=== PATIENT | female | born 1960 | race Caucasian/White ===

== ENCOUNTER 2020-12-25 10:19 | Outpatient (CLI) | payer OTHER ==
[2020-12-25 11:51] LABS: Anion Gap 12 mmol/L (10-20); BUN (Urea Nitrogen) 14 mg/dL (9.8-20.1); Calc. Creatinine Clearance 0 mL/min (70-130); Calcium 9.7 mg/dL (7.8-10.44); Carbon Dioxide 28 mmol/L (23-31); Chloride 105 mmol/L (98-107); Glucose 90 mg/dL (80-115); INR-International Normal Ratio 0.9; PTT 29.4 sec (22.0-33.0); Potassium 4.3 mmol/L (3.5-5.1); Prothrombin Time 10.5 sec (9.5-12.1); Sodium 141 mmol/L (136-145)
[2020-12-25 11:59] LABS: Hemoglobin 15.2 g/dL (12.0-15.5); Mean Corpuscular HGB CONC 33.6 g/dL (32.0-36.0); Mean Corpuscular Hemoglobin 32.8 pg (27.0-33.0); Mean Corpuscular Volume 97.6 fl (81.6-98.3); Mean Platelet Volume 10.7 fl (7.4-10.4); Platelet Count 229 10x3/uL (150-450); RBC Distribution Width 12.3 % (11.5-14.5); Red Blood Cell (RBC) Count 4.64 10x6/uL (3.90-5.03); White Blood Cell (WBC) Count 7.7 10x3/uL (3.5-10.5)
== END 2020-12-25 10:20 | disposition home or self-care (01) ==
LOC: LABBT 10:19
PROVIDERS: ATTEND Internal Medicine Cardiovascular Disease
DX: Z01.818 Encounter for other preprocedural examination (principal); Z51.81 Encounter for therapeutic drug level monitoring; I48.91 Unspecified atrial fibrillation; I50.9 Heart failure, unspecified; Z79.01 Long term (current) use of anticoagulants
CPT/HCPCS: 80048; 85027; 85610; 85730; 93005; 93010

== ENCOUNTER 2020-12-30 05:52 | Observation (INO) | payer OTHER ==
[2020-12-27 12:24] VITALS: BMI 20.9
[2020-12-30] MEDS ORDERED: Heparin 25,000 units/D5W 500 ML ONE (06:44)
[2020-12-30] MEDS ORDERED: Heparin 10,000 UNITS/ 10 ML VIAL ONE (06:44)
[2020-12-30] MEDS ORDERED: Lidocaine 1% (PF) 30 ML VIAL ONE (06:45)
[2020-12-30] MEDS ORDERED: Isoproterenol 0.2 MG/1 ML AMP ONE ×2 (06:45→09:45)
[2020-12-30] MEDS ORDERED: Fentanyl 100 MCG/2 ML VIAL ONE ×2 (07:07→11:28)
[2020-12-30] MEDS ORDERED: Albuterol Sulfate HFA (OR ONLY) ONE (07:31)
[2020-12-30] MEDS ORDERED: Lidocaine 1% PF 5 ML VIAL ONE (07:35)
[2020-12-30] MEDS ORDERED: Rocuronium Bromide 10 MG/ML (10ML VIAL) ONE (07:35)
[2020-12-30] MEDS ORDERED: Ondansetron PF 4 MG/2 ML Vial ONE (07:35)
[2020-12-30] MEDS ORDERED: Dexamethasone 20 MG/5 ML VIAL ONE (07:35)
[2020-12-30] MEDS ORDERED: Midazolam HCl 2 mg/2 ml Vial ONE (07:35)
[2020-12-30] MEDS ORDERED: PHENYLEPHRINE-NS 100 MCG/ML 10 ML SYRINGE ONE (07:35)
[2020-12-30] MEDS ORDERED: PROPOFOL 200 MG/20 ML VIAL ONE (07:35)
[2020-12-30] MEDS ORDERED: ePHEDrine Sulfate 50 MG/10 ML VIAL ONE (07:35)
[2020-12-30] MEDS ORDERED: Protamine Sulfate 50 MG/5 ML VIAL ONE (10:48)
[2020-12-30] MEDS ORDERED: SUGAMMADEX SODIUM 200 MG/2 ML VIAL ONE (10:49)
[2020-12-30] MEDS ORDERED: Furosemide 40 MG TAB PO PRN (12:04)
[2020-12-30] MEDS ORDERED: Potassium Chloride 20 MEQ TAB PO PRN (12:04)
[2020-12-30] MEDS ORDERED: HYDROcodone/Acetaminophen 10/325 mg Tablet PO PRN (12:07)
[2020-12-30] MEDS ORDERED: Albuterol Sulfate 2.5 mg/3 ml Neb NEB PRN (12:08)
[2020-12-30] MEDS ORDERED: Cyclobenzaprine 10 MG TAB PO PRN (12:14)
[2020-12-30] MEDS ORDERED: Acetaminophen/Codeine 30-300mg Tablet PO PRN ×2 (12:15)
[2020-12-30] MEDS ORDERED: PROMETHAZINE-CODEINE SYRUP PO PRN (12:16)
[2020-12-30] MEDS: Sucralfate 1 GM TAB PO SCH (18:23)
[2020-12-30] MEDS: guaiFENesin/Codeine 200 mg/20 mg 10 ml Cup PO PRN (18:23)
[2020-12-30] MEDS: clonazePAM 1 MG TAB PO SCH (20:10)
[2020-12-30] MEDS: Apixaban 5 MG TAB PO SCH (20:10)
[2020-12-30] MEDS: Zolpidem Tartrate 5 MG TAB PO PRN ×2 (20:10→22:38)
[2020-12-30] MEDS: Ketorolac Tromethamine 30 MG/ML VIAL IVP PRN (22:24)
[2020-12-31] MEDS: Sucralfate 1 GM TAB PO SCH ×3 (00:01→13:19)
[2020-12-31] MEDS: Ketorolac Tromethamine 30 MG/ML VIAL IVP PRN (04:19)
[2020-12-31] MEDS ORDERED: Albuterol Sulfate 1.25 MG/3 ML NEB NEB PRN (08:58)
[2020-12-31] MEDS ORDERED: Estradiol 1 MG TAB PO SCH (09:00)
[2020-12-31] MEDS ORDERED: Potassium Chloride 20 MEQ TAB PO SCH (09:00)
[2020-12-31] MEDS ORDERED: Furosemide 40 MG/4 ML VIAL SLOW IVP SCH (09:00)
[2020-12-31] MEDS: clonazePAM 1 MG TAB PO SCH (09:26)
[2020-12-31] MEDS: Apixaban 5 MG TAB PO SCH (09:26)
[2020-12-31] MEDS: guaiFENesin/Codeine 200 mg/20 mg 10 ml Cup PO PRN ×2 (09:29)
[2020-12-31 11:59] VITALS: BP 119/83; TEMP 98.5
== END 2020-12-31 13:39 | disposition home or self-care (01) ==
LOC: CCL 05:52 → 2SW 06:40
PROVIDERS: ADMIT Internal Medicine Cardiovascular Disease; ATTEND Internal Medicine Cardiovascular Disease
PROC: 02583ZZ Destruction of Conduction Mechanism, Percutaneous Approach (ICD-10-PCS; principal; 2020-12-30)
PROC: 02K83ZZ Map Conduction Mechanism, Percutaneous Approach (ICD-10-PCS; 2020-12-30)
PROC: 4A023FZ Measurement of Cardiac Rhythm, Percutaneous Approach (ICD-10-PCS; 2020-12-30)
PROC: 4A0234Z Measurement of Cardiac Electrical Activity, Percutaneous Approach (ICD-10-PCS; 2020-12-30)
DX: I48.0 Paroxysmal atrial fibrillation (principal); I48.92 Unspecified atrial flutter; J44.9 Chronic obstructive pulmonary disease, unspecified; I10 Essential (primary) hypertension; G43.909 Migraine, unspecified, not intractable, without status migrainosus; G89.4 Chronic pain syndrome; F17.200 Nicotine dependence, unspecified, uncomplicated; K21.9 Gastro-esophageal reflux disease without esophagitis; M19.90 Unspecified osteoarthritis, unspecified site; Z79.01 Long term (current) use of anticoagulants; Z79.899 Other long term (current) drug therapy; Z88.5 Allergy status to narcotic agent; Z88.6 Allergy status to analgesic agent
CPT/HCPCS: 76942; 85347; 93005; 93010; 93613; 93622; 93623; 93655; 93656; 93662; 96374; 96375; 96376; C1732; C1759; G0378; J1100; J1644; J1885; J1940; J2001; J2250; J2405; J2704; J2720; J3010

== ENCOUNTER 2021-01-01 21:09 | Observation (INO) | payer OTHER ==
[2021-01-01 22:26] VITALS: BMI 21.0
[2021-01-01] MEDS ORDERED: Albuterol Sulfate 1.25 MG/3 ML NEB NEB PRN (23:22)
[2021-01-01] MEDS ORDERED: Potassium Chloride 20 MEQ TAB PO PRN (23:22)
[2021-01-01] MEDS ORDERED: Zolpidem Tartrate 5 MG TAB PO SCH (23:59)
[2021-01-01] MEDS ORDERED: clonazePAM 1 MG TAB PO SCH (23:59)
[2021-01-02] MEDS ORDERED: Acetaminophen 325 MG TAB PO PRN (01:07)
[2021-01-02] MEDS: Sucralfate 1 GM TAB PO SCH ×6 (01:09→23:39)
[2021-01-02] MEDS ORDERED: Cefepime 2 GM in Sodium Chloride 0.9% 100 ML IVPB SCH (02:00)
[2021-01-02 02:37] LABS: Anion Gap 13 mmol/L (10-20); BUN (Urea Nitrogen) 9 mg/dL (9.8-20.1); Calc. Creatinine Clearance 101 mL/min (70-130); Calcium 8.4 mg/dL (7.8-10.44); Carbon Dioxide 22 mmol/L (23-31); Chloride 108 mmol/L (98-107); Glucose 105 mg/dL (80-115); Potassium 3.5 mmol/L (3.5-5.1); Sodium 139 mmol/L (136-145)
[2021-01-02] MEDS: Guaifenesin DM 100-10/5 ML UDCUP PO PRN ×2 (02:37→21:22)
[2021-01-02] MEDS ORDERED: Vancomycin 1.5 GRAM/300 ML BAG 1.5 GM in Premix Bag 1 BAG IVPB SCH (03:00)
[2021-01-02] MEDS ORDERED: Vancomycin 1 GM in Premix Bag 1 BAG IVPB SCH ×2 (03:00→15:00)
[2021-01-02 03:14] LABS: Troponin I 0.983 ng/mL (< 0.028)
[2021-01-02 04:55] LABS: #Eosinphils 0.2 thou/uL (0.0-0.7); #Lymphocytes 2.1 thou/uL (1.20-3.40); #Monocytes 1.1 thou/uL (0.11-0.59); #Neutrophils 4.1 thou/uL (1.40-6.50); %Basophils 0.2 % (0.0-1.0); %Eosinophils 2.3 % (0.0-10.0); %Lymphocytes 28.8 % (21.0-51.0); %Monocytes 14.3 % (0.0-10.0); %Neutrophils 54.5 % (42.0-75.0); Hemoglobin 12.2 g/dL (12.0-16.0); Mean Corpuscular HGB CONC 35.1 g/dL (32.0-36.0); Mean Corpuscular Hemoglobin 35.1 pg (27.0-31.0); Mean Corpuscular Volume 99.7 fL (78.0-98.0); Mean Platelet Volume 8.3 fL (7.4-10.4); Platelet Count 151 thou/uL (130-400); RBC Distribution Width 11.5 % (11.5-14.5); Red Blood Cell (RBC) Count 3.48 mill/uL (4.20-5.40); White Blood Cell (WBC) Count 7.4 thou/uL (4.8-10.8)
[2021-01-02 05:34] LABS: Critical Call Chem Troponin I RESULT DECREASING
[2021-01-02] MEDS: methylPREDNISolone Sod Succ 40 MG VIAL IVP SCH ×4 (05:55→23:39)
[2021-01-02] MEDS: clonazePAM 1 MG TAB PO SCH ×2 (09:03→21:21)
[2021-01-02] MEDS: Benzonatate 100 MG CAP PO PRN ×3 (09:03→21:21)
[2021-01-02] MEDS: Estradiol 1 MG TAB PO SCH (09:03)
[2021-01-02] MEDS: Apixaban 5 MG TAB PO SCH ×2 (09:03→21:21)
[2021-01-02] MEDS: Cyclobenzaprine 10 MG TAB PO SCH ×2 (09:03→21:20)
[2021-01-02] MEDS ORDERED: Furosemide 40 MG TAB PO PRN (09:05)
[2021-01-02] MEDS ORDERED: PATIENT'S HOME MEDICATION PO PRN (09:07)
[2021-01-02] MEDS: Promethazine 25 MG TAB PO PRN (16:42)
[2021-01-02] MEDS ORDERED: Zolpidem Tartrate 5 MG TAB PO SCH (21:00)
[2021-01-02] MEDS: Doxycycline 100 MG CAP PO SCH (21:22)
[2021-01-03] MEDS ORDERED: HYDROcodone/Acetaminophen 7.5/325 mg Tablet PO PRN (01:41)
[2021-01-03] MEDS: Sucralfate 1 GM TAB PO SCH ×2 (05:34→10:59)
[2021-01-03] MEDS: methylPREDNISolone Sod Succ 40 MG VIAL IVP SCH ×2 (05:34→10:59)
[2021-01-03] MEDS: Promethazine 25 MG TAB PO PRN (08:18)
[2021-01-03] MEDS: Doxycycline 100 MG CAP PO SCH (08:18)
[2021-01-03] MEDS: Benzonatate 100 MG CAP PO PRN (08:18)
[2021-01-03] MEDS: clonazePAM 1 MG TAB PO SCH (08:18)
[2021-01-03] MEDS: Estradiol 1 MG TAB PO SCH (08:18)
[2021-01-03] MEDS: Apixaban 5 MG TAB PO SCH (08:19)
[2021-01-03] MEDS ORDERED: HYDROcodone/Acetaminophen 5/325 mg Tablet PO PRN (08:23)
[2021-01-03] MEDS: Cyclobenzaprine 10 MG TAB PO SCH (08:24)
[2021-01-03] MEDS: Guaifenesin DM 100-10/5 ML UDCUP PO PRN (08:26)
[2021-01-03 11:01] VITALS: BP 117/56; TEMP 98.7
== END 2021-01-03 12:08 | disposition home or self-care (01) ==
LOC: 2NO 22:05
PROVIDERS: ADMIT Internal Medicine; ATTEND Internal Medicine
DX: R06.02 Shortness of breath (principal); R05 Cough; R77.8 Other specified abnormalities of plasma proteins; J42 Unspecified chronic bronchitis; I48.91 Unspecified atrial fibrillation; G89.29 Other chronic pain; M54.9 Dorsalgia, unspecified; I73.9 Peripheral vascular disease, unspecified; Z79.899 Other long term (current) drug therapy; Z87.891 Personal history of nicotine dependence; Z88.5 Allergy status to narcotic agent; Z88.6 Allergy status to analgesic agent; Z20.822 Contact with and (suspected) exposure to COVID-19
CPT/HCPCS: 36415; 80048; 84484; 85025; 87040; 94640; 96374; 96375; 96376; G0378; J0692; J2920; J3370; J3490; J7620; Q0169

== ENCOUNTER 2021-12-31 10:41 | Outpatient (CLI) | payer OTHER | END 2021-12-31 10:42 | disposition home or self-care (01) | LOC: BICMAMMO 10:41 | PROVIDERS: ATTEND Internal Medicine Gastroenterology | DX: Z12.31 Encounter for screening mammogram for malignant neoplasm of breast (principal) | CPT/HCPCS: 77067 ==

== ENCOUNTER 2022-09-10 09:42 | Emergency (ER) | payer OTHER ==
[2022-09-10 11:33] LABS: INR-International Normal Ratio 0.9; PTT 32.4 sec (22.9-36.1); Prothrombin Time 12.2 sec (12.0-14.7)
[2022-09-10 11:34] LABS: D-Dimer Test 0.68 *mcg/mL (0.27-0.43)
[2022-09-10 11:35] LABS: #Eosinphils 0.1 thou/uL (0.0-0.7); #Lymphocytes 2.3 thou/uL (1.20-3.40); #Monocytes 0.7 thou/uL (0.11-0.59); #Neutrophils 4.6 thou/uL (1.40-6.50); %Basophils 0.4 % (0.0-1.0); %Eosinophils 0.9 % (0.0-10.0); %Lymphocytes 29.7 % (21.0-51.0); %Monocytes 9.6 % (0.0-10.0); %Neutrophils 59.3 % (42.0-75.0); Hemoglobin 14.9 g/dL (12.0-16.0); Mean Corpuscular Hemoglobin 34.9 pg (27.0-31.0); Mean Platelet Volume 7.7 fL (7.4-10.4); Platelet Count 207 10x3/uL (130-400); RBC Distribution Width 11.4 % (11.5-14.5); Red Blood Cell (RBC) Count 4.27 mill/uL (4.20-5.40); White Blood Cell (WBC) Count 7.7 10x3/uL (4.8-10.8)
[2022-09-10 11:37] LABS: ALT (SGPT) 24 U/L (8-55); AST (SGOT) 31 U/L (5-34); Albumin 4.1 g/dL (3.4-4.8); Alkaline Phosphatase 72 U/L (40-110); Anion Gap 14 mmol/L (10-20); BUN (Urea Nitrogen) 9 mg/dL (9.8-20.1); Bilirubin, Total 0.3 mg/dL (0.2-1.2); Calc. Creatinine Clearance 0 mL/min (70-130); Calcium 9.2 mg/dL (7.8-10.44); Carbon Dioxide 23 mmol/L (23-31); Chloride 108 mmol/L (98-107); Estimated GFR 97; Glucose 80 mg/dL (80-115); Potassium 4.4 mmol/L (3.5-5.1); Protein, Total 7.1 g/dL (5.8-8.1); Sodium 141 mmol/L (136-145)
== END 2022-09-10 13:14 | disposition home or self-care (01) ==
LOC: ERS 09:42
DX: M79.661 Pain in right lower leg (principal); F17.210 Nicotine dependence, cigarettes, uncomplicated
CPT/HCPCS: 36415; 80053; 85025; 85379; 85610; 85730

== ENCOUNTER 2022-12-20 07:51 | Emergency (ER) | payer OTHER ==
[2022-12-20 08:23] LABS: #Basophils 0.1 thou/uL (0.0-0.2); #Eosinphils 0.1 thou/uL (0.0-0.7); #Monocytes 0.9 thou/uL (0.11-0.59); #Neutrophils 4.6 thou/uL (1.40-6.50); %Basophils 0.7 % (0.0-1.0); %Eosinophils 1.6 % (0.0-10.0); %Lymphocytes 29.8 % (21.0-51.0); %Monocytes 10.8 % (0.0-10.0); %Neutrophils 56.7 % (42.0-75.0); Hemoglobin 15.8 g/dL (12.0-16.0); Mean Corpuscular HGB CONC 34.5 g/dL (32.0-36.0); Mean Corpuscular Hemoglobin 33.3 pg (27.0-31.0); Mean Corpuscular Volume 96.6 fl (78.0-98.0); Mean Platelet Volume 9.6 fL (7.4-10.4); Platelet Count 206 10x3/uL (130-400); RBC Distribution Width 12.4 % (11.5-14.5); Red Blood Cell (RBC) Count 4.74 mill/uL (4.20-5.40); White Blood Cell (WBC) Count 8.1 10x3/uL (4.8-10.8)
[2022-12-20] MEDS ORDERED: Ketorolac Tromethamine 30 MG/ML VIAL ONE (08:40)
[2022-12-20 08:46] LABS: ALT (SGPT) 10 U/L (8-55); AST (SGOT) 13 U/L (5-34); Albumin 3.9 g/dL (3.4-4.8); Alkaline Phosphatase 79 U/L (40-110); Anion Gap 12 mmol/L (10-20); BUN (Urea Nitrogen) 16 mg/dL (9.8-20.1); Bilirubin, Total 0.4 mg/dL (0.2-1.2); Calc. Creatinine Clearance 0 mL/min (70-130); Calcium 9.3 mg/dL (7.8-10.44); Carbon Dioxide 22 mmol/L (23-31); Chloride 106 mmol/L (98-107); Estimated GFR 98; Globulin 2.8 g/dL (2.4-3.5); Glucose 90 mg/dL (80-115); Lipase 21 U/L (8-78); Potassium 3.7 mmol/L (3.5-5.1); Protein, Total 6.7 g/dL (5.8-8.1); Sodium 136 mmol/L (136-145)
[2022-12-20 08:52] LABS: Bacteria/HPF None Seen HPF (None Seen); Bilirubin Negative (Negative); Blood, Urine Negative (Negative); CAUTI Indications for Culture Pelvic or flank pain; Glucose, Urine (Dipstick) Normal (Negative); Ketone, Urine Negative (Negative); Leukocyte Negative Leu/uL (Negative); Nitrite Negative (Negative); Protein, Urine (Dipstick) 20 mg/dL (Neg-Trace); RBC/HPF 0-3 HPF (0-3); Specific Gravity, Urine 1.031 (1.002-1.036); Urobilinogen Normal mg/dL (Less than 2); WBC/HPF 0-3 HPF (0-3); pH, Urine 5.5 (5.0-9.0)
[2022-12-20 08:53] LABS: Clarity Hazy (Clear)
[2022-12-20 08:54] LABS: Urine Culture Reflex No No
== END 2022-12-20 09:12 | disposition home or self-care (01) ==
LOC: ERS 07:51
DX: M54.9 Dorsalgia, unspecified (principal); F17.210 Nicotine dependence, cigarettes, uncomplicated
CPT/HCPCS: 36415; 80053; 81001; 83690; 85025; 96372; 99283; J1885

== ENCOUNTER 2023-01-08 10:24 | Outpatient (CLI) | payer OTHER | END 2023-01-08 10:25 | disposition home or self-care (01) | LOC: BICMAMMO 10:24 | PROVIDERS: ATTEND Obstetrics & Gynecology | DX: Z12.31 Encounter for screening mammogram for malignant neoplasm of breast (principal); Z13.820 Encounter for screening for osteoporosis; R05.9 Cough, unspecified; R07.81 Pleurodynia; M85.89 Other specified disorders of bone density and structure, multiple sites; J98.4 Other disorders of lung; Z98.1 Arthrodesis status | CPT/HCPCS: 71046; 77067; 77080 ==

== ENCOUNTER 2023-06-21 13:15 | Outpatient (CLI) | payer MEDICARE, MEDICAID | END 2023-06-21 13:16 | disposition home or self-care (01) | LOC: ULT 13:15 | PROVIDERS: ATTEND Internal Medicine Gastroenterology | DX: M79.89 Other specified soft tissue disorders (principal); M79.661 Pain in right lower leg ==

== ENCOUNTER 2023-11-10 07:37 | Outpatient (CLI) | payer MEDICARE, MEDICAID | END 2023-11-10 07:38 | disposition home or self-care (01) | LOC: NM 07:37 | PROVIDERS: ATTEND Physician Assistant Medical | DX: R10.13 Epigastric pain (principal); R63.4 Abnormal weight loss | CPT/HCPCS: 78264; A9541 ==

== ENCOUNTER 2023-11-11 07:33 | Outpatient (CLI) | payer MEDICARE, MEDICAID | END 2023-11-11 07:34 | disposition home or self-care (01) | LOC: CT 07:33 | PROVIDERS: ATTEND Physician Assistant Medical | DX: R10.13 Epigastric pain (principal); R63.4 Abnormal weight loss | CPT/HCPCS: 74160; 82565 ==

== ENCOUNTER 2023-12-07 14:24 | Outpatient (CLI) | payer MEDICARE, MEDICAID ==
[~2023-12-07 14:24] MED LIST: Iopamidol 370 76% 100 ML VIAL ONE
== END 2023-12-07 14:25 | disposition home or self-care (01) ==
LOC: BICCT 14:24
PROVIDERS: ATTEND Physician Assistant Medical
DX: K31.84 Gastroparesis (principal); R10.13 Epigastric pain; R63.4 Abnormal weight loss; I70.0 Atherosclerosis of aorta
CPT/HCPCS: 74174; Q9967

== ENCOUNTER 2024-01-27 12:14 | Outpatient (CLI) | payer MEDICARE, MEDICAID | END 2024-01-27 12:15 | disposition home or self-care (01) | LOC: BICMAMMO 12:14 | PROVIDERS: ATTEND Obstetrics & Gynecology | DX: Z12.31 Encounter for screening mammogram for malignant neoplasm of breast (principal) | CPT/HCPCS: 77063; 77067 ==

== ENCOUNTER 2025-01-30 13:12 | Outpatient (CLI) | payer MEDICARE | END 2025-01-30 13:13 | disposition home or self-care (01) | LOC: BICMAMMO 13:12 | DX: Z12.31 Encounter for screening mammogram for malignant neoplasm of breast (principal) | CPT/HCPCS: 77063; 77067 ==